=== PATIENT | female | born 1985 | race Two or more races ===

== ENCOUNTER 2021-11-11 16:29 | Emergency (ER) | payer MEDICAID, OTHER ==
[~2021-11-11] VITALS: Ht 175.3 cm; Wt 122.5 kg
[2021-11-11] MEDS ORDERED: amLODIPine BESYLATE 5 MG TAB PO ONE (17:00)
[2021-11-11 17:28] VITALS: BP 250/130
== END 2021-11-11 18:09 | disposition left against medical advice (07) ==
LOC: ER 16:29
DX: R06.02 Shortness of breath (principal); R10.9 Unspecified abdominal pain; Z20.822 Contact with and (suspected) exposure to COVID-19; Z53.21 Procedure and treatment not carried out due to patient leaving prior to being seen by health care provider
CPT/HCPCS: 36415; 87426; 93005